=== PATIENT | female | born 1995 | race Caucasian/White ===

== ENCOUNTER 2017-06-07 05:57 | Observation (INO) ==
[2017-06-07 06:43] LABS: Bilirubin,Urine Negative (Negative); Blood,Urine Trace (Negative); Clarity,Urine Cloudy (Clear); Color,Urine Yellow (Yellow); Glucose,Urine (UA) Normal (Normal); Ketones,Urine 15 mg/dL (Negative); Leukocyte Esterase,Urine Negative (Negative); Nitrite,Urine Negative (Negative); Protein,Urine Negative (Neg-Trace); Specific Gravity,Urine 1.023 (1.010-1.025); Urobilinogen,Urine Normal (Normal)
--- NOTE | 2017-06-07 06:44 | OB/GYN Progress Note ---
Date of Encounter: 06/07/17 Time of Encounter: 06:38 - Assessment and Plan (1) 39 weeks gestation of Current Visit: Yes Status: Acute FHT baseline 130s, moderate variability. Serial cervical exams: 6am 1 cm dilation; 7:15 1-2 (minimal change, talking through contractions). Urine negative nitrites, negative leukocyte esterase. If cervix unchanged, anticipate discharge home with precautions. Discharged home. Appointment with Dr. Gonsales at 0900 (2) Uterine contractions Current Visit: Yes Status: Acute (3) NST (non-stress test) reactive Current Visit: Yes Status: Acute Baseline 135 Subjective - Subjective Principal diagnosis: Uterine contractions affecting Interval history: Nellie Greenberg, 21 year old, , at 39+4, presents to labor and delivery for evaluation of labor due to increased intermittent contractions and mild low back pain. Pain is located in the sacral and pelvic regions, without abdominal tenderness/ fever/malaise. Pt reports good movement, no loss of fluid or spontaneous rupture of membranes, vaginal bleeding She feels contractions around every 5 minutes. Pt is GBS negative and AB positive. Sees Dr. Dhillon in clinic. Antepartum ROS: movement normal, contractions, no loss of fluid, no vaginal bleeding Objective - Vital Signs Vital Signs: Intake and Output 06/06/17 06/06/17 06/07/17 15:59 23:59 07:59 Other: Weight 72.121 kg Patient Weight 06/07/17 23:59 Weight 72.121 kg - Exam FHR: auscultation normal, category 1 FHR comments: FHT baseline 130s, moderate variability. Auscultation: bilateral: normal Abdomen: Present: gravid. Absent: tenderness Cervical dilation: 1 Comments: per RN.
[2017-06-07 06:58] LABS: Amphetamine Screen,Urine Negative ng/mL (Cutoff=1000); Barbiturate Screen,Urine Negative ng/mL (Cutoff=200); Benzodiazepines Screen,Urine Negative ng/mL (Cutoff=200); Cannabinoid Screen,Urine Negative ng/mL (Cutoff = 50); Cocaine Screen,Urine Negative ng/mL (Cutoff= 300); Opiate Screen,Urine Negative ng/mL (Cutoff=300); Phencyclidine Screen,Urine Negative ng/mL (Cutoff=25)
[2017-06-07 07:01] LABS: Bacteria,Urine Many per hpf (None-Few); Squamous Epithelial Cell,Urine Few per lpf (None-Few)
== END 2017-06-07 07:30 | disposition home or self-care (01) ==
LOC: 1NENULAB
PROVIDERS: ADMIT Advanced Practice Midwife; ATTEND Advanced Practice Midwife

== ENCOUNTER 2017-06-07 10:23 | Inpatient (IN) ==
[~2017-06-07 10:23] MED LIST: Famotidine 20 MG/2 ML VIAL IVP PRN; Naloxone 0.4 MG/ML INJ IVP PRN; Ondansetron 4 MG/2 ML VIAL IVP PRN; Ringers Solution, Lactated 1,000 ML IVC SCH
[2017-06-07 10:25] LABS: Basophils % 0.1 %; Eosinophils % 0.1 %; Hematocrit 37.9 % (35.3-44.9); Hemoglobin 12.5 g/dL (11.5-15.4); Immature Granulocytes % 0.3 % (0-4); Lymphocytes # 1.5 K/mcL (0.6-4.6); Lymphocytes % 12.7 %; Mean Corpuscular Hemoglobin 29.3 pg (28.0-33.3); Monocytes # 0.5 K/mcL (0.0-1.3); Monocytes % 4.2 %; Neutrophils # 9.8 K/mcL (1.6-8.9); Platelet Count 195 K/mcL (140-400); Red Blood Count 4.26 M/mcL (3.82-4.97); Red Cell Distribution Width 14.3 % (11.5-14.5); Segmented Neutrophils % 82.6 %
[2017-06-07] MEDS ORDERED: *HR* FentaNYL (PF) 100 MCG/2 ML VIAL EP ONE (21:39)
[2017-06-07] MEDS ORDERED: Bupivacaine-MPF 0.25% 10 ML VIAL EP ONE (21:39)
--- NOTE | 2017-06-07 21:41 | Anesthesia Evaluation PreOp ---
Date of Encounter: 06/07/17 Time of Encounter: 21:27 - Past History Planned Operation: labor epidural Cardiac History: Denies any Significant Hx Pulmonary History: Denies Any Significant HX [employer]EN [employer] History: Denies Any Significant HX Other Medical History: Denies Any Significant HX Anesthesia History: No Prior Anesthetic Complications, Past Anesthesia (wisdom teeth extracted,) Alcohol Use: none Drug use: none Medications and Allergies No Known Home Drugs 06/07/17 [History] 3 Allergy/AdvReac Type Severity Reaction Status Date / Time No Known Allergies Allergy Verified 06/07/17 11:23 Anesthesia Results - Labs 06/07/17 10:16
[2017-06-07] MEDS ORDERED: Epidural Premix (fent/bupiv) 110 ML EP SCH (21:45)
--- NOTE | 2017-06-07 21:57 | Anesthesia Evaluation PreOp ---
Date of Encounter: 06/07/17 Time of Encounter: 21:27 - Past History Planned Operation: labor epidural Cardiac History: Denies any Significant Hx Pulmonary History: Denies Any Significant HX HISTOLOGY AIDE History: Denies Any Significant HX Other Medical History: Denies Any Significant HX Anesthesia History: No Prior Anesthetic Complications, Past Anesthesia (wisdom teeth extracted, D&C. No family history of anesthetic complications.) : Yes Alcohol Use: none Drug use: none Medications and Allergies No Known Home Drugs 06/07/17 [History] 3 Allergy/AdvReac Type Severity Reaction Status Date / Time No Known Allergies Allergy Verified 06/07/17 11:23 - Meds/Allergy Pre-op Review Medications Reviewed: Yes Allergies Reviewed: Yes Beta Blockers on Current Med List: No Anesthesia Results - Labs 06/07/17 10:16 Anesthesia Exam VSS and FHTs stable. Height: 5'6" Weight: 72 kg NPO (# of Hours): >4 Pain Scale: 6 Pain Scale Used: Numeric (1 - 10) - HEENT Pupil (Motor): Pupils equal, EOMI Teeth: Normal Oral Opening: Greater than 3 - HISTOLOGY AIDE LOC: Oriented HISTOLOGY AIDE Motor: Normal RUE, Normal LUE, Normal RLE, Normal LLE, Normal Face HISTOLOGY AIDE Sensory: Normal: RUE, LUE, RLE, LLE, Face - Cardiac Rhythm: Regular - Pulmonary Breath Sounds: bilateral Clear Respiratory Effort: Symmetrical Anesthesia Assess/Plan ASA Score: 2 Modified Benita Scale for Level of Consciousness: Cooperative, oriented, and tranquil Anesthetic Plan: Regional Monitoring Plan: Standard Monitors
[2017-06-07] MEDS ORDERED: *HR* FentaNYL (PF) 100 MCG/2 ML VIAL ONE (22:17)
[2017-06-07] MEDS ORDERED: Epidural Premix (fent/bupiv) 110 ML EP ONE (22:18)
[2017-06-07] MEDS ORDERED: Bupivacaine-MPF 0.25% 10 ML VIAL ONE (22:18)
--- NOTE | 2017-06-07 22:41 | OB/GYN History & Physical ---
Date of Encounter: 06/07/17 Time of Encounter: 22:33 Assessment and Plan (1) 39 weeks gestation of Current visit: No Status: Acute Admit to labor and delivery for expectant management Ambulate Epidural AROM at 2310 Anticipate spontaneous vaginal delivery (2) NST (non-stress test) reactive Current visit: No Status: Acute Baseline 145-150 bpm moderate variability accelerations (3) Rubella non-immune status, antepartum Current visit: Yes Status: Acute Plan to immunize History of Present Illness Chief complaint: induction of labor HPI: Nellie Greenberg is a 21 year-old G 2 P 0010 female at 39 weeks and 4 days who presents to labor and delivery for induction of labor. She was seen earlier today in the office by Dr. Dhillon with contractions, and has made cervical change since then. Contractions have gotten stronger and more frequent throughout the day. Patient reports good movement and some minor vaginal bleeding. Patient denies loss of fluid. Patient denies nausea, vomiting, diarrhea, shortness of breath, chest pain, headache, visual disturbance, LE edema, and upper abdominal pain. Uncomplicated course. Blood type: AB+ Rubella Nonimmune Varicella Immune Hep B negative GBS negative All other serologies negative Past Med Surg Social Fam HX - Past Medical History Medical history: no medical history Psychiatric history: no psych history - Past Surgical History Surgical History: other - Social History Smoking Status: Never smoker Smokeless Tobacco Status: No Alcohol use: none Drug use: none - Family History Mother Living Status: Still Living Hx Family Cancer: Yes (SKIN CANCER) Obstetrical History - Pregnancies : 2 Para: 1 Term: 0 : 0 Ab's: 1 (D&C for miscarriage) Livin Medications and Allergies No Known Home Drugs 06/07/17 [History] 3 Allergy/AdvReac Type Severity Reaction Status Date / Time No Known Allergies Allergy Verified 06/07/17 11:23 Review of System OB - Cardiovascular Cardiovascular: no chest pain, no dyspnea - Respiratory Respiratory: no dyspnea - Gastrointestinal Gastrointestinal: no diarrhea, no nausea, no vomiting Exam - Constitutional Constitutional: well developed, well nourished, no acute distress - HEENT HEENT: Normocephaly, Mucus Membranes Moist - Neck Neck exam: trachea midline - Lungs Respiratory exam: CTAB - Cardiovascular Cardiovascular exam: RRR, +S1, +S2 - Abdomen Abdomen: Present: gravid, non tender - Extremities Extremities exam: normal inspection Deep Tendon Reflex Grade: 2+ Normal - Cervix Dilation: 6 (6-7) Effacement: 90 Results Result Diagrams: 06/07/17 10:16 Abnormal lab results WBC 11.8 K/mcL (4.3-11.1) H 06/07/17 10:16 Neutrophils # 9.8 K/mcL (1.6-8.9) H 06/07/17 10:16 All other labs normal. - VTE Reasons for not Prescribing Prophylaxis: Treatment not Indicated - Low risk for VTE
--- NOTE | 2017-06-07 22:51 | Anesthesia Procedures ---
Date of Encounter: 06/07/17 Time of Encounter: 22:21 Procedures: Anesthesia - Epidural/Spinal Patient ID/Chart reviewed: Yes Patient examined: Yes OB Eval: Gestational age: 39 OB Eval: : 2 OB Eval: Hx Para: 0 OB Eval: Dilated at (cm): 6 OB Eval: Contractions: Non-stressed pattern Consent Obtained: Yes Supplemental Oxygen: None/Room Air Site Prep: Aseptic Technique, Sterile prep and drape, Povidone-Iodine 1% Patient position: upright Local Anesthetic: Lidocaine 1% Amount of Local Anesthetic used: 3 Touhy Needle Gauge: 18 Touhy Needle Depth (cm): 4 Catheter Depth at Skin (cm): 15 Test Dose (1.5% Lido + Epi): Volume given (mls): 3 Test Dose Result: Negative Loading Dose: 0.25% Marcaine (mls): 8 Loading Dose: Fentanyl (mcg): 100 Loading Dose Administered: Thru Catheter Infusion Med: 0.125% Bupivacaine w/ 2 mcg/ml Fentanyl Infusion Rate (mls/hr): [address]: Tegaderm, Tape Interspace Used: L3-L4 Loss of Resistance (BEBE): Yes Blood: No CSF: No Paresthesia: No Vitals + FHT's: 3 Vital Signs Time 2221 2236 2240 2245 BP 121/64 129/67 118/58 110/67 Pulse 82 79 79 83 FHTs 150 140 150 150
--- NOTE | 2017-06-08 00:10 | OB Labor Progress Note ---
Date of Encounter: 06/07/17 Time of Encounter: 23:15 Labor Progress Note - Subjective Subjective: Pt resting comfortably after epidural placement. - Cervix Cervix: 7/90%/-1 - Heart Tones Heart Tones: FHR 150 bpm, moderate variability, + 15x15 accels, occasional variable deceleration. - [place]: 1-7 minutes - Interventions Interventions: AROM for moderate amount of clear fluid. - Plan Plan: Continued labor management.
[2017-06-08] MEDS ORDERED: Oxytocin 20 units/ LR 1000 mL 20 UNIT/1,000 ML BAG IVC ONE (01:54)
--- NOTE | 2017-06-08 03:02 | OB Labor Progress Note ---
Date of Encounter: 06/08/17 Time of Encounter: 02:31 Labor Progress Note - Subjective Subjective: Pt sleeping. - Heart Tones Heart Tones: Category II,, occasional variable decelerations, periods of minimal variability - Plan Plan: Continue to monitor. Anticipate .
[2017-06-08] MEDS ORDERED: Measles/Mumps/Rubella Vacc 0.5 ML VIAL SQ PRN (06:14)
--- NOTE | 2017-06-08 06:14 | OB/GYN Procedure Note ---
Delivery - Delivery Date: 06/08/17 Provider: Norbert Lerma Intrapartum events: none Delivery induction: none Delivery augmentation: rupture of membranes Delivery monitor: external FHT Anesthesia: epidural Estimated Blood Loss: 200 - Repair Episiotomy: none Laceration Description: Perineal - 1st Degree - Complications Delivery complications: none - Disposition Mom disposition: stable in LDR [place] disposition: stable in LDR - Comments Comments: 21 y/o now delivered a viable female infant weight 7lbs 7oz @ 0538hrs, infant delivered BENIGNO, no nuchal cord, 3 VC cord, APGARs 7/8, placenta delivered @ 0544hrs, EBL 200cc, 1st degree perineal laceration repaired with 3-0 vicryl. Mother and infant doing very well.
[2017-06-08] MEDS ORDERED: Oxytocin 20 units/ LR 1000 mL 20 UNIT/1,000 ML BAG IVC SCH (06:15)
[2017-06-08] MEDS: Ibuprofen 600 MG TABLET PO PRN ×2 (07:20→22:13)
[2017-06-08] MEDS ORDERED: Benzocaine/Menthol 56 GM AEROSOL SPRAY TP PRN (08:47)
[2017-06-08] MEDS ORDERED: Prenatal Vit/FA 1 EACH TABLET PO SCH (09:00)
[2017-06-09 07:38] LABS: Basophils % 0.1 %; Eosinophils # 0.1 K/mcL (0.0-0.6); Eosinophils % 0.5 %; Hematocrit 32.1 % (35.3-44.9); Immature Granulocytes % 0.5 % (0-4); Lymphocytes # 2.9 K/mcL (0.6-4.6); Lymphocytes % 17.7 %; Mean Corpuscular HGB Conc 31.2 g/dL (31.6-35.5); Mean Corpuscular Hemoglobin 28.1 pg (28.0-33.3); Mean Corpuscular Volume 90.2 fL (83.0-100.0); Mean Platelet Volume 11.1 fL (9.4-12.4); Monocytes % 6.3 %; Neutrophils # 12.3 K/mcL (1.6-8.9); Platelet Count 179 K/mcL (140-400); Red Blood Count 3.56 M/mcL (3.82-4.97); Red Cell Distribution Width 14.8 % (11.5-14.5); Segmented Neutrophils % 74.9 %
[2017-06-09] MEDS: Ibuprofen 600 MG TABLET PO PRN (08:05)
--- NOTE | 2017-06-09 10:16 | Discharge Summary ---
Date of Encounter: 06/09/17 Time of Encounter: 10:26 - Discharge Diagnosis (1) (normal spontaneous vaginal delivery) Priority: Primary Status: Acute Comments: Doing well, will d/c home. - Discharge Medications Prescriptions: Ibuprofen [Motrin] 600 mg PO Q6HR PRN #40 tablet PRN Reason: Cramping Home Medications: Ibuprofen [Motrin] 600 mg PO Q6HR PRN #40 tablet 06/09/17 [Rx] Allergies/Adverse Reactions: 3 Allergy/AdvReac Type Severity Reaction Status Date / Time No Known Allergies Allergy Verified 06/07/17 11:23 Data Procedures and tests throughout hospitalization: Laboratory Tests 06/07/17 06/09/17 10:16 06:53 WBC 11.8 H 16.5 H RBC 4.26 3.56 L Hgb 12.5 10.0 L D Hct 37.9 32.1 L MCV 89.0 90.2 MCH 29.3 28.1 MCHC 33.0 31.2 L RDW 14.3 14.8 H Plt Count 195 179 MPV 11.0 11.1 Immature Gran % 0.3 0.5 Seg Neutrophils % 82.6 74.9 Lymphocytes % 12.7 17.7 Monocytes % 4.2 6.3 Eosinophils % 0.1 0.5 Basophils % 0.1 0.1 Neutrophils # 9.8 H 12.3 H Lymphocytes # 1.5 2.9 Monocytes # 0.5 1.0 Eosinophils # 0.0 0.1 Basophils # 0.0 0.0 Labs on day of discharge: Labs from last 24 hours 06/09/17 06:53 WBC 16.5 H RBC 3.56 L Hgb 10.0 L D Hct 32.1 L MCV 90.2 MCH 28.1 MCHC 31.2 L RDW 14.8 H Plt Count 179 MPV 11.1 Immature Gran % 0.5 Seg Neutrophils % 74.9 Lymphocytes % 17.7 Monocytes % 6.3 Eosinophils % 0.5 Basophils % 0.1 Neutrophils # 12.3 H Lymphocytes # 2.9 Monocytes # 1.0 Eosinophils # 0.1 Basophils # 0.0 - Impressions Doing well without c/o. Appropriate lochia and cramping. 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 Attestation: Total time spent providing and/or coordinating discharge services: Exam - Constitutional Vitals: Temp Pulse Resp BP Pulse Ox 97.6 F 88 16 108/70 98 06/09/17 05:08 06/09/17 05:08 06/09/17 05:08 06/09/17 05:08 06/09/17 05:08 General appearance IM: A&O X 3 - Respiratory Respiratory exam: Present: CTAB - Cardiovascular Cardiovascular exam IM: Present: RRR - GI/Abdominal GI/Abdominal exam IM: normal bowel sounds - Uterus Position: 2 Fingers Below Umbilicus - Extremities Exam Extremities exam IM: Present: full ROM - Neurological Exam Neurological exam: oriented X3 - VTE Reasons for not Prescribing Prophylaxis: Treatment not Indicated - Low risk for VTE
[2017-06-09 10:39] VITALS: BP 100/58
== END 2017-06-09 11:44 | disposition home or self-care (01) | DRG 774 ==
LOC: 1NENULAB → 1NENUOBS 06-08 08:38
PROVIDERS: ADMIT Student in an Organized Health Care Education/Training Program; ATTEND Student in an Organized Health Care Education/Training Program

== ENCOUNTER → 2020-09-28 13:36 | Observation (INO) ==
[2020-09-28 12:03] LABS: Bacteria,Urine Few per hpf (None-Few); Bilirubin,Urine Negative (Negative); Blood,Urine Negative (Negative); Clarity,Urine Turbid (Clear); Color,Urine Yellow (Yellow); Glucose,Urine (UA) Normal (Normal); Ketones,Urine Negative (Negative); Leukocyte Esterase,Urine Negative (Negative); Mucus,Urine Few per lpf (None-Few); Nitrite,Urine Negative (Negative); PH,Urine 6.5 pH Units (5.0-8.0); Protein,Urine Trace mg/dL (Neg-Trace); RBC,Urine 0-3 per hpf (0-3); Specific Gravity,Urine 1.021 (1.010-1.025); Squamous Epithelial Cell,Urine Few per hpf (None-Few); Urobilinogen,Urine Normal (Normal)
[2020-09-28 13:03] LABS: Candida DNA Not Detected (Not Detect); Gardnerella DNA Not Detected (Not Detect); Trichomonas DNA Not Detected (Not Detect)
[2020-09-30 07:49] LABS: C. trachomatis by NAA Negative (Negative); N. gonorrhoeae by NAA Negative (Negative)
== END | disposition home or self-care (01) ==
LOC: 1NENULAB
PROVIDERS: ADMIT Obstetrics & Gynecology; ATTEND Obstetrics & Gynecology

== ENCOUNTER → 2021-01-16 20:20 | Observation (INO) ==
[2021-01-16 17:53] LABS: Bacteria,Urine Few per hpf (None-Few); Bilirubin,Urine Negative (Negative); Blood,Urine Negative (Negative); Clarity,Urine Clear (Clear); Color,Urine Yellow (Yellow); Glucose,Urine (UA) Normal (Normal); Ketones,Urine >150 mg/dL (Negative); Leukocyte Esterase,Urine Negative (Negative); Mucus,Urine Few per lpf (None-Few); Nitrite,Urine Negative (Negative); Protein,Urine 30 mg/dL (Neg-Trace); RBC,Urine 0-3 per hpf (0-3); Specific Gravity,Urine 1.029 (1.010-1.025); Squamous Epithelial Cell,Urine Moderate per hpf (None-Few); WBC,Urine 0-3 per hpf (0-3)
[2021-01-16 18:49] LABS: Basophils % 0.2 %; Hematocrit 33.7 % (35.3-44.9); Hemoglobin 10.8 g/dL (11.5-15.4); Immature Granulocytes % 0.4 % (0-4); Lymphocytes # 0.5 K/mcL (0.6-4.6); Lymphocytes % 5.3 %; Mean Corpuscular Hemoglobin 28.5 pg (28.0-33.3); Mean Corpuscular Volume 88.9 fL (83.0-100.0); Mean Platelet Volume 10.7 fL (9.4-12.4); Monocytes # 0.4 K/mcL (0.0-1.3); Monocytes % 3.5 %; Neutrophils # 9.2 K/mcL (1.6-8.9); Platelet Count 213 K/mcL (140-400); Red Blood Count 3.79 M/mcL (3.82-4.97); Red Cell Distribution Width 13.9 % (11.5-14.5); Segmented Neutrophils % 90.6 %; White Blood Count 10.2 K/mcL (4.3-11.1)
[2021-01-16 19:04] LABS: BUN/Creatinine Ratio 20 (6-26); Blood Urea Nitrogen 8 mg/dL (6-20); Calcium 8.3 mg/dL (8.6-10.3); Carbon Dioxide 19 mEq/L (23-29); Chloride 103 mEq/L (98-107); Glucose 65 mg/dL (70-105); Osmolality,Calculated 276 (280-300); Potassium 3.6 mEq/L (3.5-5.1); Sodium 135 mEq/L (136-145); eGFR For African Americans > 60 (> 60); eGFR For Non-African Americans > 60 (> 60)
[~2021-01-16 20:20] MED LIST changes: -Famotidine 20 MG/2 ML VIAL IVP PRN; -Naloxone 0.4 MG/ML INJ IVP PRN; +Ondansetron 4 MG/2 ML VIAL IM ONE; -Ringers Solution, Lactated 1,000 ML IVC SCH; +Ringers Solution, Lactated 500 ML IVC ONE
== END | disposition home or self-care (01) ==
LOC: 1NENULAB
PROVIDERS: ADMIT Obstetrics & Gynecology; ATTEND Obstetrics & Gynecology

== ENCOUNTER 2021-02-01 14:26 | Inpatient (IN) ==
[2021-02-01] MEDS ORDERED: Famotidine 20 MG/2 ML VIAL IVP PRN (16:10)
[2021-02-01] MEDS ORDERED: Ondansetron 4 MG/2 ML VIAL IVP PRN (16:10)
[2021-02-01] MEDS ORDERED: Naloxone 0.4 MG/ML INJ IVP PRN (16:10)
[2021-02-01] MEDS ORDERED: Metoclopramide 10 MG/2 ML VIAL IVP PRN (16:10)
[2021-02-01] MEDS ORDERED: Azithromycin 500 MG in 0.9 % Sodium Chloride 250 ML IVPB ONE (16:10)
[2021-02-01] MEDS ORDERED: *HR* Nalbuphine 10 MG/ML AMPUL IV PRN (16:10)
[2021-02-01] MEDS ORDERED: Lidocaine 1% 20 ML MDV INFILT PRN (16:10)
[2021-02-01 16:12] LABS: Influenza A PCR Negative (Negative); Influenza B PCR Negative (Negative); Resp. Syncytial Virus PCR Negative (Negative)
[2021-02-01] MEDS ORDERED: miSOPROStoL 25 MCG TABLET VG PRN (16:14)
[2021-02-01] MEDS ORDERED: Ringers Solution, Lactated 1,000 ML IVC SCH (16:15)
[2021-02-01 16:23] LABS: SARS-CoV-2 by PCR (In House) Negative (Negative)
[2021-02-01 16:54] LABS: Basophils % 0.1 %; Eosinophils % 0.3 %; Hematocrit 33.7 % (35.3-44.9); Hemoglobin 10.9 g/dL (11.5-15.4); Immature Granulocytes % 0.4 % (0-4); Lymphocytes # 1.8 K/mcL (0.6-4.6); Lymphocytes % 22.6 %; Mean Corpuscular HGB Conc 32.3 g/dL (31.6-35.5); Mean Corpuscular Hemoglobin 28.4 pg (28.0-33.3); Mean Corpuscular Volume 87.8 fL (83.0-100.0); Mean Platelet Volume 10.8 fL (9.4-12.4); Monocytes # 0.5 K/mcL (0.0-1.3); Monocytes % 5.8 %; Neutrophils # 5.7 K/mcL (1.6-8.9); Platelet Count 243 K/mcL (140-400); Red Blood Count 3.84 M/mcL (3.82-4.97); Red Cell Distribution Width 14.6 % (11.5-14.5); Segmented Neutrophils % 70.8 %
[2021-02-01 17:10] LABS: Amphetamine Screen,Urine Negative ng/mL (Cutoff=1000); Barbiturate Screen,Urine Negative ng/mL (Cutoff=200); Benzodiazepines Screen,Urine Negative ng/mL (Cutoff=200); Cannabinoid Screen,Urine Negative ng/mL (Cutoff = 50); Cocaine Screen,Urine Negative ng/mL (Cutoff= 300); Opiate Screen,Urine Negative ng/mL (Cutoff=300); Phencyclidine Screen,Urine Negative ng/mL (Cutoff=25)
[2021-02-01] MEDS ORDERED: EPHEDrine 50 MG/ML VIAL IVP PRN (18:45)
[2021-02-01] MEDS ORDERED: Epidural Premix (fent/bupiv) 110 ML EP SCH (18:45)
[2021-02-01] MEDS ORDERED: Ropivacaine/PF 0.2% 20 ML VIAL EP ONE (18:45)
[2021-02-01] MEDS ORDERED: *HR* FentaNYL (PF) 100 MCG/2 ML VIAL EP ONE (18:45)
[2021-02-01] MEDS ORDERED: Ropivacaine/PF 0.2% 20 ML VIAL ONE (18:47)
[2021-02-01] MEDS ORDERED: *HR* FentaNYL (PF) 100 MCG/2 ML VIAL ONE (18:47)
[2021-02-02] MEDS ORDERED: 0.9 % Sodium Chloride 1,000 ML ONE (00:15)
[2021-02-02] MEDS ORDERED: Measles/Mumps/Rubella Vacc 0.5 ML VIAL SQ PRN (06:42)
[2021-02-02] MEDS ORDERED: Lanolin 7 G OINT...G. TP PRN (06:42)
[2021-02-02] MEDS ORDERED: Benzocaine/Menthol 56 GM AEROSOL SPRAY TP PRN (06:42)
[2021-02-02] MEDS ORDERED: Oxytocin 20 units/ LR 1000 mL 20 UNIT/1,000 ML BAG IVC SCH (06:42)
[2021-02-02] MEDS: Prenatal Vit/FA 1 EACH TABLET PO SCH (10:48)
[2021-02-02] MEDS: Ibuprofen 600 MG TABLET PO PRN ×2 (10:48→18:07)
[2021-02-02] MEDS: Acetaminophen 325 MG TABLET PO PRN (18:08)
[2021-02-03 06:35] LABS: Basophils % 0.2 %; Eosinophils # 0.1 K/mcL (0.0-0.6); Eosinophils % 0.6 %; Hematocrit 28.2 % (35.3-44.9); Immature Granulocytes % 0.5 % (0-4); Lymphocytes # 2.5 K/mcL (0.6-4.6); Lymphocytes % 21.4 %; Mean Corpuscular HGB Conc 32.3 g/dL (31.6-35.5); Mean Corpuscular Hemoglobin 28.6 pg (28.0-33.3); Mean Corpuscular Volume 88.7 fL (83.0-100.0); Mean Platelet Volume 10.6 fL (9.4-12.4); Monocytes # 0.7 K/mcL (0.0-1.3); Monocytes % 6.1 %; Neutrophils # 8.2 K/mcL (1.6-8.9); Platelet Count 160 K/mcL (140-400); Red Blood Count 3.18 M/mcL (3.82-4.97); Red Cell Distribution Width 14.6 % (11.5-14.5); Segmented Neutrophils % 71.2 %; White Blood Count 11.5 K/mcL (4.3-11.1)
[2021-02-03 06:36] LABS: Hemoglobin 9.1 g/dL (11.5-15.4)
[2021-02-03] MEDS: Prenatal Vit/FA 1 EACH TABLET PO SCH (07:50)
[2021-02-03 08:00] VITALS: BP 109/69
[2021-02-03] MEDS: Acetaminophen 325 MG TABLET PO PRN (10:13)
[2021-02-03] MEDS: Ibuprofen 600 MG TABLET PO PRN (10:13)
== END 2021-02-03 12:35 | disposition home or self-care (01) | DRG 807 ==
LOC: 1NENULAB 14:26 → 1NENUOBS 02-02 08:49
PROVIDERS: ADMIT Obstetrics & Gynecology; ATTEND Obstetrics & Gynecology